=== PATIENT | male | born 1965 | race Caucasian/White ===

== ENCOUNTER 2018-10-26 21:07 | Emergency (ER) | payer BC ==
[~2018-10-26] VITALS: Ht 180.3 cm; Wt 127.0 kg
[~2018-10-26 21:07] MED LIST: AMARYL1 MG PO; COREG6.25 MG PO; GLUCOPHAGE1000 MG PO; HYDROCODONE-APA1 TAB PO; PRAVACHOL40 MG PO
[2018-10-26 21:10] VITALS: Ht 180.3 cm; Wt 127.0 kg
[2018-10-26] MEDS ORDERED: GLUCOPHAGE1000 MG PO (21:48)
[2018-10-26] MEDS ORDERED: GLUCOPHAGE500 MG PO (21:48)
[2018-10-26] MEDS ORDERED: LYRICA75 MG PO (21:49)
[2018-10-26] MEDS ORDERED: COREG12.5 MG PO (21:49)
[2018-10-26] MEDS ORDERED: PRAVACHOL80 MG PO (21:49)
[2018-10-26] MEDS ORDERED: VITAMIN B-122500 MCG PO (21:50)
[2018-10-26] MEDS ORDERED: FARXIGA10 MG PO (21:51)
[2018-10-26] MEDS ORDERED: AMBIEN10 MG (21:51)
[2018-10-26 22:01] LABS: BASOPHILS 0.2 % (0-2); EOSINOPHILS 2.7 % (0-7); HEMATOCRIT 46.4 % (42.0-54.0); IMMATURE GRANULOCYTES 0.3 % (0-5); LYMPHOCYTES 16.3 % (15-50); MCH 28.9 pg (26.0-34.0); MCHC 32.3 g/dL (31.0-37.0); MCV 89.4 fL (80.0-100.0); MEAN PLATELET VOLUME 11.7 fL (7.4-10.4); MONOCYTES 5.1 % (2-11); NEUTROPHILS 75.4 % (40-80); PLATELET COUNT 204 10x3/uL (130-400); RBC 5.19 10x6/uL (4.20-6.10); RDW 14.7 % (11.5-14.5); WBC 12.8 10x3/uL (4.8-10.8)
[2018-10-26 22:14] LABS: ALBUMIN 3.3 g/dL (3.4-5.0); ALKALINE PHOSPHATASE 54 U/L (46-116); ALT (SGPT) 35 U/L (10-68); BILIRUBIN - TOTAL 0.23 mg/dL (0.2-1.3); CALC OSMOLALITY 282 mosm/kg (275-300); CALCIUM 9.1 mg/dL (8.5-10.1); CARBON DIOXIDE 25.1 mmol/L (21.0-32.0); CHLORIDE - SERUM 102 mmol/L (98-107); GLUCOSE 198 mg/dL (74-106); POTASSIUM - SERUM 3.7 mmol/L (3.5-5.1); PROTEIN - SERUM 7.3 g/dL (6.4-8.2); SODIUM 138 mmol/L (136-145); UREA NITROGEN 15 mg/dL (7-18); eGFR NON AFRICAN AMERICAN 84 mL/min (90-120)
[2018-10-26] MEDS ORDERED: PEPCID40 MG PO (22:28)
[2018-10-26] MEDS ORDERED: BENADRYL50 MG PO (22:28)
[2018-10-26 23:02] VITALS: BP 147/98
== END 2018-10-26 23:02 | disposition home or self-care (01) ==
LOC: D.ER 21:07
PROVIDERS: Emergency Medicine
DX: T78.3XXA Angioneurotic edema, initial encounter (principal); T50.995A Adverse effect of other drugs, medicaments and biological substances, initial encounter; E11.40 Type 2 diabetes mellitus with diabetic neuropathy, unspecified; E78.5 Hyperlipidemia, unspecified; I10 Essential (primary) hypertension

== ENCOUNTER 2018-10-28 10:39 | Emergency (ER) | payer BC ==
[~2018-10-28] VITALS: Ht 180.3 cm; Wt 134.1 kg
[~2018-10-28 10:39] MED LIST changes: +AMBIEN10 MG; +BENADRYL50 MG PO; +COREG12.5 MG PO; +FARXIGA10 MG PO; +GLUCOPHAGE500 MG PO; +LYRICA75 MG PO; +PEPCID40 MG PO; +PRAVACHOL80 MG PO; +VITAMIN B-122500 MCG PO
[2018-10-28 10:44] VITALS: Ht 180.3 cm; Wt 134.1 kg
[2018-10-28] MEDS ORDERED: MEDROL DOSE PACK4 MG PO (11:40)
[2018-10-28 11:56] VITALS: BP 134/82
== END 2018-10-28 11:57 | disposition home or self-care (01) ==
LOC: D.ER 10:39
DX: T50.905A Adverse effect of unspecified drugs, medicaments and biological substances, initial encounter (principal); Y92.019 Unspecified place in single-family (private) house as the place of occurrence of the external cause; R21 Rash and other nonspecific skin eruption